=== PATIENT | male | born 2000 ===

== ENCOUNTER 2021-07-16 08:00 | Outpatient (CLI) | payer OTHER | END 2021-07-16 08:30 | disposition home or self-care (01) | LOC: PPH VACUNA 08:00 | DX: Z23 Encounter for immunization (principal) ==

== ENCOUNTER 2022-02-25 11:29 | Outpatient (CLI) | payer OTHER | END 2022-02-25 11:30 | disposition home or self-care (01) | LOC: LAB 11:29 | DX: R07.89 Other chest pain (principal) ==